=== PATIENT | female | born 1965 | race Caucasian/White ===

== ENCOUNTER 2017-06-15 17:00 | Inpatient (IN) | payer OTHER ==
[~2017-06-15] VITALS: Ht 157.5 cm; Wt 91.2 kg
--- NOTE | ~2017-06-15 | CO ---
Unit #: [id number] #: [id number] Patient: SHARRON LUGO [id number] [place] [address] [id number] MR#: [id number] NAME: SHARRON LUGO. ROOM: P181 Age: 51 Sex: F Admission Date: 06/16/2017 : 1965 Attending Physician: Walter Davis M.D. Primary Care Physician: Primary Care Physician No Consultation Date: 06/18/2017 CONSULTATION REPORT SUBJECTIVE Sharron is a 51 year old, who complained to nursing staff about right flank pain, sometime after her admission. She denies any urgency, frequency, or dysuria. She further denies any injury. We have been asked to assess and give recommendations. OBJECTIVE GENERAL: Alert, obese, no apparent distress. VITAL SIGNS: blood pressure 140/92, heart rate 80, respirations 16, temperature 98.6. ABDOMEN: Obese, soft, nontender. BACK: Negative CVA tenderness. LABORATORY: Admission urinalysis within normal limits. ASSESSMENT The patient complains of right flank pain. After speaking with her she tells me that this resolved within a matter of a few hours. She has no further complaints. PLAN Tylenol p.r.n. She can follow up with PCP should she continue to have problems after discharge. Dictated by... Salome Connelly P.A.-C. for Des Colvin/lavern TD: 06/20/2017 11:17 JOB #: [id number] Unit #: [id number] #: [id number] Patient: SHARRON LUGO CONSULTATION REPORT Page 1 of 1 X Salome Connelly CONSULTATION REPORT
--- NOTE | ~2017-06-15 | PN ---
Unit #: [id number] #: [id number] Patient: ANA LUGO [id number] [facility] [address] [place] [address] [id number] MR#: [id number] NAME: ANA LUGO. ROOM: P181 Age: 51 Sex: F Admission Date: 06/16/2017 : 1965 Attending Physician: Walter Davis M.D. Admitting Physician: Walter Davis M.D. Primary Care Physician: Primary Care Physician Lacey LANDAVERDE PROGRESS NOTES DATE June 18, 2017 DISCUSSION Ms. Lugo is a 51-year-old white female, who was seen today and chart was reviewed and the case was discussed with the staff. She has been anxious, withdrawn, depressed, and seclusive to herself. She also has been complaining of right flank pain. Meanwhile, she has been cooperative with the treatment recommendations, and has been taking the medications and tolerating them fairly well with no reported side effects. MENTAL STATUS EXAMINATION Middle-aged white female, who was casually dressed with fair personal hygiene and appears to be in no acute distress or discomfort. She was awake and alert on interaction with intact orientation. Her mood was anxious with a congruent affect. Her speech is slow and goal-directed. She reports having suicidal ideations and denies any homicidal ideations. Her insight and judgment remain slightly impaired. TREATMENT PLAN 1. We will continue her on her current medications and treatment protocol, and will maintain her current level of precautions and also get medical consultation for her right flank pain. 2. We will continue to followup. Dictated by... Des Santiago/lavern TD: 06/18/2017 10:55 JOB #: [id number] Unit #: [id number] #: [id number] Patient: ANA LUGO AKHIL PROGRESS NOTES Page 1 of 1 X Walter Davis MD PROGRESS NOTE
--- NOTE | ~2017-06-15 | DS ---
Unit #: [id number] #: [id number] Patient: ANA LUGO [id number] [place] [address] [id number] I MR#: [id number] NAME: ANA LUGO. ROOM: P181 Age: 51 Sex: F Admission Date: 06/16/2017 : 1965 Discharge Date: 06/21/2017 Attending Physician: Walter Davis M.D. Primary Care Physician: Primary Care Physician No DISCHARGE SUMMARY IDENTIFICATION DATA Ms. Lugo is a 51-year-old white female who is a resident of [place] and was referred to us on a voluntary basis. DISCHARGE DIAGNOSES PSYCHIATRIC: Major depressive disorder, recurrent, moderate, without psychotic features. Alcohol dependence, moderate, in acute withdrawals. MEDICAL: None. STRESSORS: Mild psychosocial stressors. HISTORY OF PRESENT ILLNESS Same as in initial psychiatric evaluation. PAST PSYCHIATRIC HISTORY Same as in initial psychiatric evaluation. PAST MEDICAL HISTORY Same as in initial psychiatric evaluation. HOSPITAL COURSE The patient was admitted to the adult chemical dependency unit at [facility] and was oriented to the hospital environment. Routine p.r.n. medications were initiated, and she was started back on the home medications. Medications were adjusted, and she was started on alcohol detox protocol. Celexa was also given to help her with depression, and she was closely monitored. She was taking the medications regularly and was tolerating them fairly well and was able to come out of the detox without any complications and was willing to continue treatment on outpatient basis. As such it was decided that she will be discharged home. We will continue treatment on outpatient basis. DISCHARGE MEDICATIONS Celexa 20 mg a day for depression. CONDITION AT DISCHARGE Stable. PROGNOSIS Fair. Dictated by... Unit #: [id number] #: [id number] Patient: ANA LUGO Walter Davis M.D. IAA/bzg TD: 06/21/2017 09:55 JOB #: [id number] DISCHARGE SUMMARY Page 1 of 1 X Walter Davis MD X DISCHARGE SUMMARY
--- NOTE | ~2017-06-15 | PN ---
Unit #: [id number] #: [id number] Patient: ANA LUGO [id number] [facility] [address] [place] [address] [id number] MR#: [id number] NAME: ANA LUGO. ROOM: P181 Age: 51 Sex: F Admission Date: 06/16/2017 : 1965 Attending Physician: Walter Davis M.D. Admitting Physician: Walter Davis M.D. Primary Care Physician: Primary Care Physician Lacey NOVAK NOTES DATE OF SERVICE 06/19/2017 DISCUSSION Ms. Lugo is a 51-year-old white female who was seen today. Chart was reviewed and case was discussed with the staff. She has been anxious, withdrawn, depressed, and rather seclusive to herself. Meanwhile, she has been cooperative with the treatment recommendations and has been taking the medications and tolerating them fairly well with no reported side effects. MENTAL STATUS EXAMINATION Middle-aged white female who is casually dressed with fair personal hygiene, appears to be in no acute distress or discomfort. She was awake and alert on interaction with intact orientation. Her mood is anxious and depressed with congruent affect. Speech is slow and goal-directed. She denies any suicidal or homicidal ideations. Her insight and judgment remain slightly impaired. TREATMENT PLAN 1. We will continue her on her current medications and treatment protocol. We will monitor her response and make further adjustments as needed. 2. We will continue to follow up. Dictated by... Walter Davis M.D. IAA/bzg TD: 06/19/2017 10:53 JOB #: [id number] Unit #: [id number] #: [id number] Patient: ANA LUGO [facility] PROGRESS NOTES Page 1 of 1 X Walter Davis MD PROGRESS NOTE
--- NOTE | ~2017-06-15 | HP ---
Unit #: [id number] #: [id number] Patient: SHARRON LUGO [id number] [place] [address] [id number] MR#: [id number] NAME: SHARRON LUGO. ROOM: P181 Age: 51 Sex: F Admission Date: 06/16/2017 : 1965 Attending Physician: Walter Davis M.D. Admitting Physician: Walter Davis M.D. Primary Care Physician: Primary Care Physician No HISTORY AND PHYSICAL HISTORY OF PRESENT ILLNESS Sharron is a 51 year old admitted to [facility] because of her abuse of alcohol. PAST MEDICAL HISTORY 1. History of alcohol abuse. 2. Obesity. PAST SURGICAL HISTORY Nothing reported. ALLERGIES No known drug allergies. SOCIAL HISTORY Smokes one pack per day. Drinks at least a 12-pack of beer on a daily basis. Admits to using marijuana on occasion. FAMILY HISTORY Medically noncontributory. REVIEW OF SYSTEMS CONSTITUTIONAL: No fever or chills. HEENT: Denies any sore throat, ear pain or runny nose. CARDIOVASCULAR: Denies chest pain, irregular heart rhythm or palpitations. CHEST: Denies shortness of breath or cough. No hemoptysis. GASTROINTESTINAL: Denies nausea, vomiting, diarrhea or chronic constipation. ENDOCRINE: Denies history of increased thirst or urination. No recent significant weight loss or gain. GENITOURINARY: Denies dysuria, frequency, or hematuria. SKIN: Denies any rashes. HEMATOLOGIC: Denies history of increased bleeding or bruising. MUSCULOSKELETAL: Denies any hot, swollen joints. No generalized muscle pain. NEUROLOGIC: Denies problems with vision or speech. No frequent, severe headaches. No numbness, tingling or weakness in any extremities. Denies loss of bladder or bowel control. CURRENT MEDICATIONS 1. Detox protocol 2. Celexa 20 mg q day Unit #: [id number] #: [id number] Patient: SHARRON LUGO PHYSICAL EXAMINATION GENERAL: Alert, well-nourished, in no apparent distress. VITAL SIGNS: Blood pressure 170/96, heart rate 72, respirations 16, temperature 98.6. WEIGHT: 201. HEIGHT: 5 foot 2 inches. SKIN: Warm and dry without rash or lesion. HEENT: Normocephalic. TMs not viewed. Oral and nasal passages clear. Conjunctivae clear. Pupils equal, round and reactive to light and accommodation. Extraocular movements intact. NECK: Supple without lymphadenopathy or thyromegaly. HEART: Regular rate and rhythm without murmur. LUNGS: Clear. ABDOMEN: Soft, nontender. : Not done. EXTREMITIES: No evidence of cyanosis, clubbing or edema. Moves all extremities without focal deficit. NEUROLOGICAL: Grossly within normal limits. Cranial Nerves: II: Visual jefferson are intact. III, IV AND : Extraocular movements are intact. Pupils are equal, round and reactive to light. V: Facial sensation is grossly normal. VII: Facial movements and expression are normal. VIII: Auditory acuity grossly intact. IX, X: Uvula is midline. Phonation is normal. XI: Patient shrugs shoulders and turns head normally. XII: Tongue protrudes in the midline. Sensory and Motor Function: Sensory and motor sensation is grossly normal. Motor: moves all extremities well. Coordination: Gait is normal. Deep Tendon Reflexes: Intact. IMPRESSION Psychiatric admission. RECOMMENDATIONS PSYCHIATRIC: Per psychiatrist. MEDICAL: I see no contraindications to participating in facility's activities. MEDICAL PROGNOSIS Good. MEDICAL CONDITION Stable. Dictated by... Salome Connelly PKirstenAKirsten-Denny. for Des Colvin/dc TD: 06/16/2017 23:10 JOB #: [id number] Unit #: [id number] #: [id number] Patient: SHARRON LUGO HISTORY AND PHYSICAL Page 1 of 1 X Salome Connelly X HISTORY AND PHYSICAL
--- NOTE | ~2017-06-15 | CO ---
Unit #: [id number] #: [id number] Patient: SHARRON LUGO [id number] [place] [address] [id number] I MR#: [id number] NAME: SHARRON LUGO. ROOM: P181 Age: 51 Sex: F Admission Date: 06/16/2017 : 1965 Attending Physician: Walter Davis M.D. Primary Care Physician: Primary Care Physician No Consultation Date: 06/16/2017 CONSULTATION REPORT SUBJECTIVE Sharron is a 51-year-old, admitted because of her abuse of alcohol. She was seen for her admission H and P on 06/16/2017. At that time, she gave no history of high blood pressure. Since admission, she reports that she does have a history of high blood pressure and has been noncompliant with medications. We have been asked to assess and treat. The patient was started on lisinopril 10 mg one p.o. daily and hydrochlorothiazide 12.5 mg one p.o. daily, first dose is now. She knows to follow up with PCP. Dictated by... Salome Connelly P.A.-C. for Des Colvin/arabella TD: 06/17/2017 18:50 JOB #: [id number] CONSULTATION REPORT Page 1 of 1 X Salome Connelly CONSULTATION REPORT
--- NOTE | ~2017-06-15 | PN ---
Unit #: [id number] #: [id number] Patient: ANA LGUO [id number] [facility] [address] [place] [address] [id number] MR#: [id number] NAME: ANA LUGO. ROOM: P181 Age: 51 Sex: F Admission Date: 06/16/2017 : 1965 Attending Physician: Walter Davis M.D. Admitting Physician: Walter Davis M.D. Primary Care Physician: Primary Care Physician Lacey LANDAVERDE PROGRESS NOTES DATE June 20, 2017 DISCUSSION Ms. Lugo is a 51-year-old white female, who was seen today and chart was reviewed and the case was discussed with the staff. The patient has been anxious, withdrawn, and rather seclusive to herself. Meanwhile, she has been cooperative with the treatment recommendations and she has been taking the medications and tolerating them fairly well with no reported side effects. MENTAL STATUS EXAMINATION Middle-aged white female, who was casually dressed with fair personal hygiene and appears to be in no acute distress or discomfort. She was awake and alert on interaction with intact orientation. Her mood was anxious with a congruent affect. The patient denies any suicidal or homicidal ideations. Her insight and judgment remain slightly impaired. TREATMENT PLAN 1. We will continue her on her current medications and treatment protocol, and will monitor her response to the medications, and make further adjustments as needed. 2. We will continue to followup. Dictated by... Des Santiago/lavern TD: 06/20/2017 08:46 JOB #: [id number] Unit #: [id number] #: [id number] Patient: ANA LUGO PROGRESS NOTES Page 1 of 1 X Walter Davis MD PROGRESS NOTE
--- NOTE | ~2017-06-15 | PA ---
Unit #: [id number] #: [id number] Patient: ANA LUGO [id number] [facility] [address] [place] [address] [id number] I MR#: [id number] NAME: ANA LUGO. ROOM: P181 Age: 51 Sex: F Admission Date: 06/16/2017 : 1965 Date of Assessment: Attending Physician: Walter Davis M.D. Admitting Physician: Walter Davis M.D. Primary Care Physician: Primary Care Physician No PSYCHIATRIC ASSESSMENT DATE OF SERVICE 06/16/2017. IDENTIFYING DATA Ms. Campbell is a 51-year-old white female, who is a resident of [place] and was self-referred to the hospital on a voluntary basis. CHIEF COMPLAINT "I attempted suicide yesterday." HISTORY OF PRESENT ILLNESS Ms. Campbell is a 51-year-old white female with history of mood disorder, who was self-referred to the hospital reporting increasing depression and suicidal ideations and reports she attempted suicide yesterday by taking 5 to 6 Ativan with eight 16-ounce beers and reports history of alcohol abuse and dependence and has been drinking a 6 pack of 16-ounce beer on a daily basis and has smoked a joint a week ago and does report increasing depression, anxiety, restlessness, feelings of hopelessness and helplessness, and suicidal ideations with intent and plan. SUBSTANCE ABUSE HISTORY The patient reports history of alcohol and cannabis abuse, and more recently, alcohol has been her drug of choice. PAST PSYCHIATRIC HISTORY The patient denies any previous inpatient or outpatient psychiatric treatment. Review of the medical records indicate currently she is not active in any treatment program, is not seeing a psychiatrist, and is not taking any psychotropic medications. PAST MEDICAL HISTORY Seizure disorder. ALLERGIES No known medication allergies. CURRENT MEDICATIONS None. PERSONAL AND SOCIAL HISTORY A 51-year-old white female, who reports that she is and unemployed and lives with her family and has poor social support system. Unit #: [id number] #: [id number] Patient: ANA LUGO MENTAL STATUS EXAMINATION Young white female, who was casually dressed with fair personal hygiene, appears to be in no acute distress or discomfort. She was awake and alert on interaction with intact orientation. Her mood was anxious with a congruent affect. Her speech was slow and restricted in content. Her thought processes were disorganized with some looseness of associations and suicidal ideations. Her insight and judgment remain slightly impaired. DIAGNOSTIC IMPRESSION Psychiatric: Major depressive disorder, recurrent, moderate, without psychotic features and alcohol dependence, moderate, in acute withdrawals. Medical: None. Stressors: Moderate psychosocial stressors. TREATMENT PLAN 1. The patient has presented with a history of mood disorder and substance abuse and has been decompensating and will need inpatient hospitalization for safety and stabilization. We will start her on alcohol detox protocol. We will also start her on antidepressant therapy. 2. Supportive therapy was provided to the patient. 3. Safe, structured, and nourishing environment will be provided. ESTIMATED LENGTH OF STAY 5 to 7 days. ABILITY TO HELP SELF Limited. WILLINGNESS TO HELP SELF The patient appears to be willing to help self. STRENGTHS 1. Communicative. 2. Cooperative. PROBLEMS 1. Chronic dysphoric symptoms. 2. Chronic chemical dependency. 3. Poor social support system. DISCHARGE CRITERIA This will be contingent upon the patient's ability to go through detox without having any significant withdrawal symptoms as well as her ability to stay safe to herself, particularly after discharge from the hospital. Dictated by... Des Santiago/arabella TD: 06/16/2017 11:46 JOB #: [id number] Unit #: [id number] #: [id number] Patient: ANA LUGO PSYCHIATRIC ASSESSMENT Page 1 of 1 X Walter Davis MD X PSYCHIATRIC ASSESSMENT
--- NOTE | ~2017-06-15 | PN ---
Unit #: [id number] #: [id number] Patient: ANA LUGO [id number] [facility] [address] [place] [address] [id number] I MR#: [id number] NAME: ANA LUGO. ROOM: P181 Age: 51 Sex: F Admission Date: 06/16/2017 : 1965 Attending Physician: Walter Davis M.D. Admitting Physician: Walter Davis M.D. Primary Care Physician: Primary Care Physician Lacey NOVAK NOTES DATE 06/17/2017 DISCUSSION Ms. Lugo is a 51-year-old white female who was seen today and chart was reviewed and case was discussed with the staff. She has been anxious, withdrawn and rather seclusive to herself. Meanwhile, she has been cooperative with treatment recommendations and has been taking medications and tolerating them fairly well with no reported side effects. MENTAL STATUS EXAMINATION Middle-aged white female who was casually dressed with fair personal hygiene and appears to be in slight distress or discomfort. She was awake and alert with impaired attention and concentration. Her mood was anxious with a congruent affect. Her speech is slow and tangential. Her thought processes were disorganized with some looseness of associations. Her insight and judgement remains slightly impaired. TREATMENT PLAN 1. Will continue on current medications and treatment protocol and will monitor her response to the medications and make further adjustments as needed. 2. Will continue to follow up. Dictated by... Des Santiago/fili TD: 06/17/2017 22:16 JOB #: [id number] Unit #: [id number] #: [id number] Patient: ANA LUGO AKHIL PROGRESS NOTES Page 1 of 1 X Walter Davis MD PROGRESS NOTE
--- NOTE | ~2017-06-15 | CO ---
Unit #: [id number] #: [id number] Patient: SHARORN LUGO [id number] [place] [address] [id number] MR#: [id number] NAME: SHARRON LUGO. ROOM: P181 Age: 51 Sex: F Admission Date: 06/16/2017 : 1965 Attending Physician: Walter Davis M.D. Consultation Date: 06/18/2017 CONSULTATION REPORT SUBJECTIVE Sharron is a 51-year-old who complained to nursing staff about right flank pain some time after her admission. She denies any urgency, frequency, or dysuria. She further denies any injury. We have been asked to assess and give recommendations. OBJECTIVE GENERAL: Alert, obese, no apparent distress. VITAL SIGNS: Blood pressure 140/92, heart rate 80, respirations 16, temperature 98.6. ABDOMEN: Obese, soft, nontender. BACK: Negative CVA tenderness. DIAGNOSTIC STUDIES Admission urinalysis within normal limits. ASSESSMENT The patient complains right flank pain. After speaking with her, she tells me that this resolved within a matter of a few hours. She has no further complaints. PLAN Tylenol p.r.n. She can follow up with PCP should she continue to have problems after discharge. Dictated by... Delon JackAColeman. for Des Colvin/arabella TD: 06/20/2017 18:46 JOB #: [id number] Unit #: [id number] #: [id number] Patient: SHARRON LUGO CONSULTATION REPORT Page 1 of 1 X Salome Connelly CONSULTATION REPORT
[2017-06-16 12:25] LABS: BASOPHIL% 0.5 % (0-2.5); EOSINOPHIL# 0.3 X10e3 (0-0.7); EOSINOPHIL% 3.7 % (0.0-7.0); HEMATOCRIT 46.4 % (35.0-45.0); HEMOGLOBIN 15.9 gm/dL (12.0-16.0); LYMPHOCYTE# 1.4 X10e3 (1.0-3.5); LYMPHOCYTE% 16.4 % (17.0-45.0); MEAN CELL VOLUME 92.2 FL (83-96); MEAN CORPUSCULAR HEMOGLOBIN 31.6 PG (28-34); MEAN CORPUSCULAR HGB CONC 34.3 g/dL (30-36); MEAN PLATELET VOLUME 6.9 FL (6.5-11.5); MONOCYTE# 0.6 X10e3 (0-1.0); MONOCYTE% 6.8 % (3.0-12.0); NEUTROPHIL# 6.3 X10e3 (1.5-7.1); NEUTROPHIL% 72.6 % (40-75); PLATELET COUNT 292 X10e3 (140-420); RED BLOOD COUNT 5.03 X10e (3.90-5.30); RED CELL DISTRIBUTION WIDTH 13.8 % (11.0-15.5); WHITE BLOOD COUNT 8.6 X10e3 (4.0-10.5)
[2017-06-16 12:26] LABS: DIFF IND NO
[2017-06-16 12:35] LABS: URINE APPEARANCE TURBID; URINE BILIRUBIN NEG (NEG); URINE BLOOD NEG (NEG); URINE COLOR DK YELLOW; URINE GLUCOSE NEG (NEG); URINE KETONE NEG (NEG); URINE LEUKOCYTE ESTERASE NEG (NEG); URINE NITRATE NEG (NEG); URINE PROTEIN NEG (NEG); URINE SPECIFIC GRAVITY 1.023 (1.003-1.035); URINE UROBILINOGEN 0.2 MG/DL (NEG)
[2017-06-16 12:37] LABS: ALBUMIN SERUM 3.9 g/dL (3.5-5.0); BILIRUBIN,TOTAL 0.9 mg/dL (0.2-2.0); CALCIUM SERUM 9.7 mg/dL (8.4-10.2); CREATININE SERUM 0.8 mg/dL (0.6-1.4); GLOM FILT RATE Estimated 85.4 mL/min (>60); POTASSIUM 3.9 mmol/L (3.5-5.1); PROTEIN TOTAL SERUM 6.9 g/dL (6.0-8.3)
[2017-06-16 13:01] LABS: AMPHETAMINE NEG (NEG); BARBITURATES NEG (NEG); BENZODIAZEPINES POS (NEG); COCAINE NEG (NEG); MARIJUANA POS (NEG); OPIATES NEG (NEG); TRICYCLIC ANTIDEPRESSANTS NEG (NEG); U METHADONE NEG (NEG)
== END 2017-06-21 11:00 | disposition home or self-care (01) | DRG 885 ==
LOC: P1E 06-16 01:19
PROVIDERS: Psychiatry & Neurology Psychiatry
PROC: HZ2ZZZZ Detoxification Services for Substance Abuse Treatment (ICD-10-PCS; principal; 2017-06-16)
DX: F33.1 Major depressive disorder, recurrent, moderate (principal); R45.851 Suicidal ideations; G40.909 Epilepsy, unspecified, not intractable, without status epilepticus; F10.230 Alcohol dependence with withdrawal, uncomplicated; F17.210 Nicotine dependence, cigarettes, uncomplicated; I10 Essential (primary) hypertension; Z91.14 Patient's other noncompliance with medication regimen; R10.9 Unspecified abdominal pain
CPT/HCPCS: 80053; 80307; 81003; 85025; 86592